=== PATIENT | female | born 1945 | race Caucasian/White ===

== ENCOUNTER 2021-06-09 11:13 | Day surgery (SDC) | payer MEDICARE, OTHER, SELFPAY ==
[2021-06-03 08:57] VITALS: BMI 24.4
--- NOTE | 2021-06-05 10:36 | P.CONAN_ITS ---
Documented by User: Maya Velez NP 06/05/21 10:37 HPI - Anesthesia Eval Consult details Narrative: 76yo F for Upper Endoscopy and Colonoscopy [facility] Past Medical History Medical History (Updated 06/03/21 @ 09:00 by Pratima Rolon RN) Barretts esophagus COVID-19 vaccine series completed GERD (gastroesophageal reflux disease) Hiatal hernia Hypothyroid Osteoarthritis Osteoporosis Raynauds disease Surgical History Surgical History (Updated 06/02/21 @ 15:07 by Pratima Rolon RN) H/O colonoscopy History of History of esophagogastroduodenoscopy (EGD) Hx of dilation and curettage Hx of hand surgery Hx of nasal septoplasty Social History Social History Are you a primary care support representative to a significant other at home: No Do you presently have visiting nurse or other home services: No Patient Tobacco Use Status: Never used Tobacco Use of substances other than those prescribed or required for medical reasons: No Have you been hit, kicked, punched, or otherwise hurt by someone within the past year? If so, by whom?: No Are you DNR?: No Advance Directives: No Advance Directives Information Provided: No Advance Directives on File: No Recently lost weight without trying: No Eating poorly because of decreased appetite: No Nutrition Risks: No Nutritional Risk Poor oral hygiene: No (dental implant X2-lower front and upper right back) Meds Allergies Allergy/AdvReac Type Severity Reaction Status Date / Time No Known Allergies Allergy Verified 06/02/21 15:07 Home Medications Medication Instructions Recorded Confirmed Last Taken Type cholecalciferol (vitamin D3) 25 25 mcg PO DAILY 06/02/21 06/02/21 Unknown History mcg (1,000 unit) capsule (Vitamin D3) esomeprazole magnesium 40 mg 40 mg PO DAILY 06/02/21 06/02/21 Unknown History capsule,delayed release levothyroxine 75 mcg tablet 75 mcg PO DAILY 06/02/21 06/02/21 06/09/21 History multivitamin 1 tab PO DAILY 06/02/21 06/02/21 Unknown History Exam Exam Date and Time: June 05, 2021 1036 Height,Weight and Vital Signs: Height 5 ft 5 in Weight 66.678 kg Assessment and Plan Assessment Anesthesia Assessment: Chart Reviewed Documented by User: Barbara Pozo MD 06/09/21 12:46 [facility] Past Medical History Medical History (Updated 06/03/21 @ 09:00 by Pratima Rolon, KENNA) Barretts esophagus COVID-19 vaccine series completed GERD (gastroesophageal reflux disease) Hiatal hernia Hypothyroid Osteoarthritis Osteoporosis Raynauds disease Family History Family history of problems with anesthesia: No Surgical History Surgical History (Updated 06/02/21 @ 15:07 by Pratima Rolon RN) H/O colonoscopy History of History of esophagogastroduodenoscopy (EGD) Hx of dilation and curettage Hx of hand surgery Hx of nasal septoplasty History of Problems with Anesthesia: No Social History Social History Are you a primary care support representative to a significant other at home: No Do you presently have visiting nurse or other home services: No Patient Tobacco Use Status: Never used Tobacco Use of substances other than those prescribed or required for medical reasons: No Have you been hit, kicked, punched, or otherwise hurt by someone within the past year? If so, by whom?: No Are you DNR?: No Advance Directives: No Advance Directives Information Provided: No Advance Directives on File: No Recently lost weight without trying: No Eating poorly because of decreased appetite: No Nutrition Risks: No Nutritional Risk Poor oral hygiene: No (dental implant X2-lower front and upper right back) Meds Allergies Allergy/AdvReac Type Severity Reaction Status Date / Time No Known Allergies Allergy Verified 06/02/21 15:07 Home Medications Medication Instructions Recorded Confirmed Last Taken Type cholecalciferol (vitamin D3) 25 25 mcg PO DAILY 06/02/21 06/02/21 Unknown History mcg (1,000 unit) capsule (Vitamin D3) esomeprazole magnesium 40 mg 40 mg PO DAILY 06/02/21 06/02/21 Unknown History capsule,delayed release levothyroxine 75 mcg tablet 75 mcg PO DAILY 06/02/21 06/02/21 06/09/21 History multivitamin 1 tab PO DAILY 06/02/21 06/02/21 Unknown History Exam Airway Mallampati Class: II (Implant) TM Dist: >3cm Neck ROM: Full Heart: rrr Lungs: cta Assessment and Plan Assessment Anesthesia Assessment: Anesthesia Plan Discussed and Chart Reviewed Final Anesthetic Review Family History of Problems with Anesthesia: No History of Problems with Anesthesia: No NPO: Yes ASA Class: II Final Preanesthetic Review: No Changes in Pt Med Stat, Meds/Allgs Chart Reviewed and Consent Obtained/Reviewed Patient Risk: Intermediate Procedure Risk: Intermediate Anesthetic Plan Anesthetic Plan: MAC: Disposition: Standard PACU
[2021-06-09 11:16] VITALS: BP 147/66; PULSE 78; RESP 18; TEMP 37.1; O2SAT 95
[2021-06-09] MEDS: Lactated Ringers 1,000 ML 100 ML IVCONT (11:47)
--- NOTE | 2021-06-09 12:35 | HO.ANESPROP2 ---
[facility] Past Medical History Medical History (Updated 06/03/21 @ 09:00 by Pratima Rolon RN) Barretts esophagus COVID-19 vaccine series completed GERD (gastroesophageal reflux disease) Hiatal hernia Hypothyroid Osteoarthritis Osteoporosis Raynauds disease Family History Family history of problems with anesthesia: No Surgical History Surgical History (Updated 06/02/21 @ 15:07 by Pratima Rolon RN) H/O colonoscopy History of History of esophagogastroduodenoscopy (EGD) Hx of dilation and curettage Hx of hand surgery Hx of nasal septoplasty History of Problems with Anesthesia: No Social History Social History Are you a primary palliative care specialist to a significant other at home: No Do you presently have visiting nurse or other home services: No Patient Tobacco Use Status: Never used Tobacco Use of substances other than those prescribed or required for medical reasons: No Have you been hit, kicked, punched, or otherwise hurt by someone within the past year? If so, by whom?: No Are you DNR?: No Advance Directives: No Advance Directives Information Provided: No Advance Directives on File: No Recently lost weight without trying: No Eating poorly because of decreased appetite: No Nutrition Risks: No Nutritional Risk Poor oral hygiene: No (dental implant X2-lower front and upper right back) Meds Allergies Allergy/AdvReac Type Severity Reaction Status Date / Time No Known Allergies Allergy Verified 06/02/21 15:07 Active Medications: Current Medications Lactated Ringer's (Lr) 1,000 mls @ 100 mls/hr IVCONT .Q10H DC Last Admin: 06/09/21 11:47 Dose: 100 mls/hr Documented by: Sodium Biphosphate/Sodium Phosphate (Sodium Phosphate,[place]-Dibasic 133 Ml Enema) 133 ml ID ONCE PRN PRN Reason: Poor Colonoscopy Prep Results Home Medications Medication Instructions Recorded Confirmed Last Taken Type cholecalciferol (vitamin D3) 25 25 mcg PO DAILY 06/02/21 06/02/21 Unknown History mcg (1,000 unit) capsule (Vitamin D3) esomeprazole magnesium 40 mg 40 mg PO DAILY 06/02/21 06/02/21 Unknown History capsule,delayed release levothyroxine 75 mcg tablet 75 mcg PO DAILY 06/02/21 06/02/21 06/09/21 History multivitamin 1 tab PO DAILY 06/02/21 06/02/21 Unknown History Exam Exam Date and Time: June 09, 2021 1235 Height,Weight and Vital Signs: Height 5 ft 5 in Weight 66.678 kg Last Vital Signs Temp 98.8 F 06/09/21 11:16 Pulse 78 06/09/21 11:16 Resp 18 06/09/21 11:16 BP 147/66 H 06/09/21 11:16 Pulse Ox 95 06/09/21 11:16 Airway Mallampati Class: II TM Dist: >3cm Neck ROM: Full Heart: rrr Lungs: cta Assessment and Plan Assessment Anesthesia Assessment: Anesthesia Plan Discussed and Chart Reviewed Final Anesthetic Review Family History of Problems with Anesthesia: No History of Problems with Anesthesia: No NPO: Yes ASA Class: II Final Preanesthetic Review: No Changes in Pt Med Stat, Meds/Allgs Chart Reviewed and Consent Obtained/Reviewed Patient Risk: Intermediate Procedure Risk: Intermediate Anesthetic Plan Anesthetic Plan: MAC: Disposition: Standard PACU
[2021-06-09 13:57] VITALS: BP 104/55; PULSE 69; RESP 16; TEMP 36.4; O2SAT 100
--- NOTE | 2021-06-09 14:01 | PM.OP ---
Brief Operative Note Date of Service: 06/09/21 Pre-op diagnosis: Hernandez's, Screening Post-op diagnosis: other (Same, Hiatal hernia, colon polyp, AVM of ascending colon) Procedure: EGD with biopsies, Colonoscopy to the cecum with bx/removal of polyp Surgeon: Gasper Rodríguez Anesthesia: MAC Was an Shoe Stitcher Odd used for this Procedure?: No Estimated blood loss (mL): 2.0 Pathology: other (A. EG Junction at 36cm B. Transverse colon polyp) Condition: stable Disposition: PACU
[2021-06-09 14:21] VITALS: BP 146/74; PULSE 74; RESP 16; TEMP 36.4; O2SAT 100
--- NOTE | 2021-06-09 16:06 | OP_ITS ---
SURGEON: Gasper Rodríguez MD INDICATIONS: The patient presents for evaluation of gastroesophageal reflux and Hernandez's esophagus, as well as personal history of tubular adenoma of the colon, and colorectal cancer screening. Full consent has been obtained from her for this, including risks of bleeding and perforation. PREOPERATIVE DIAGNOSIS: POSTOPERATIVE DIAGNOSIS: PROCEDURE PERFORMED: ESTIMATED BLOOD LOSS: COMPLICATIONS: ANESTHESIA: Monitored anesthesia care. ASSISTANTS: SPECIMENS: PROCEDURE: Esophagogastroduodenoscopy with biopsies, and colonoscopy to the cecum with biopsy and removal of polyp. PREOPERATIVE DIAGNOSES: Gastroesophageal reflux, Hernandez's esophagus, personal history of tubular adenoma of the colon, family history of colon cancer, colorectal cancer screening. POSTOPERATIVE DIAGNOSES: Gastroesophageal reflux, Hernandez's esophagus, personal history of tubular adenoma of the colon, family history of colon cancer, colorectal cancer screening, hiatal hernia, gastric polyps, colon polyp, angiodysplasia of the colon, diverticulosis, and internal hemorrhoids. DESCRIPTION OF PROCEDURE: The patient was placed in the left lateral decubitus position. The Olympus video gastroscope was passed in the posterior oropharynx and upper esophagus under direct vision. The scope was passed slowly into the distal esophagus. The gastroesophageal junction appeared at 36 cm. There was some slight irregularity at this level consistent with reflux and possibly small, less than 1 cm areas of Hernandez's mucosa. There was no esophagitis nor ulceration. The scope entered the stomach, there was a moderate-sized hiatal hernia. The scope was advanced to pylorus. The duodenum was cannulated to the descending portion. The duodenum including the bulb appeared normal without mass or ulceration. The scope was withdrawn back to the stomach. The gastric antrum and body appeared normal with good peristalsis. The scope was retroflexed visualizing the proximal stomach carefully, which appeared normal, without any sign of mass or ulceration. There were several hyperplastic appearing gastric polyps, which were not biopsied. The scope was straightened and withdrawn back in the esophagus. Biopsies were obtained at the EG junction at 36 cm. Proximal to that, the esophageal mucosa appeared normal. Scope was withdrawn from the patient. She was turned around for colonoscopy. The digital rectal exam revealed no abnormalities. The Olympus video pediatric colonoscope was entered into the rectum and advanced easily to the cecum. Once in the cecum, I did identify normal-appearing cecal pouch with appendiceal orifice and a normal-appearing ileocecal valve. There was transillumination of light deep in the right lower quadrant. The entire cecum and ileocecal valve appeared normal. Scope was slowly withdrawn assessing all mucosal surfaces carefully. Preparation was excellent. In the proximal ascending colon, there was a nonbleeding angiodysplasia. In the transverse colon, there was an approximately 4 mm polyp, which was biopsied and completely removed with cold biopsy forceps. I did not visualize any other polyps, colitis, nor any other angiodysplasia. There was a moderate amount of diverticulosis in the descending and sigmoid colon. In the rectum, scope was retroflexed visualizing internal hemorrhoids, but no other pathology. The rectal mucosa appeared normal. The scope was straightened and withdrawn from the patient. She tolerated both procedures well and was returned to the recovery area in stable condition. IMPRESSION: 1. Moderate-sized hiatal hernia, gastroesophageal reflux, history of Hernandez's esophagus. 2. Benign appearing gastric polyps. 3. Small colon polyp, status post biopsy removal. 4. Diverticulosis. 5. Nonbleeding angiodysplasia of ascending colon. 6. Internal hemorrhoids. PLAN: The results of the biopsies will be checked. Given these minimal findings on both procedures and her age of 76, I do not think she will need any further screening colonoscopies nor followup upper endoscopies at this time. She was advised not to use any aspirin and NSAIDs for 1 week. She will continue her esomeprazole for the reflux. She will otherwise see me on a p.r.n. basis. MD RAMON Kay/RUDOLPH / [id number] JONES
== END 2021-06-09 14:56 | disposition home or self-care (01) ==
PROVIDERS: PCP Internal Medicine; Visit Provider Internal Medicine
PROC: (CPT 45380; principal; 2021-06-09 12:30)
DX: Z12.11 Encounter for screening for malignant neoplasm of colon (principal); D12.3 Benign neoplasm of transverse colon; Z86.010 Personal history of colon polyps; Z80.0 Family history of malignant neoplasm of digestive organs; K57.30 Diverticulosis of large intestine without perforation or abscess without bleeding; K64.8 Other hemorrhoids; K55.20 Angiodysplasia of colon without hemorrhage; K22.70 Barrett's esophagus without dysplasia; K21.9 Gastro-esophageal reflux disease without esophagitis; K31.7 Polyp of stomach and duodenum; K44.9 Diaphragmatic hernia without obstruction or gangrene; E03.9 Hypothyroidism, unspecified; M81.0 Age-related osteoporosis without current pathological fracture; I73.00 Raynaud's syndrome without gangrene; Z79.899 Other long term (current) drug therapy
CPT/HCPCS: 45380; 43239; 88305

== ENCOUNTER 2023-10-29 15:52 | Outpatient (REF) | payer MEDICARE, OTHER, SELFPAY ==
[2023-10-29 16:10] LABS: MANUAL DIFF FLAG NO
[2023-10-29 17:37] LABS: Basophils Percent Auto 0.5 % (0-2); Eosinophils Percent Auto 0.8 % (0-4); Hematocrit 27.4 % (37.0-47.0); Hemoglobin 8.7 g/dl (12.0-16.0); Imm Gran Abs Auto 0.03 X10*3/uL (0.00-0.03); Imm Gran Pct Auto 0.8 % (0.0-0.4); Lymphocytes Absolute Auto 0.3 X10*3/uL (1.2-4.9); Lymphocytes Percent Auto 8.9 % (20-40); Mean Corpuscular HGB Conc 31.8 g/dl (31.0-35.0); Mean Corpuscular Hemoglobin 29.7 pg (27.0-33.0); Mean Corpuscular Volume 93.5 fL (80.0-98.0); Mean Platelet Volume 11.7 fL (9.4-12.3); Monocytes Absolute Auto 0.3 X10*3/uL (0.1-1.2); Monocytes Percent Auto 7.9 % (2-11); Neutrophils Absolute Auto 3.1 x10*3/uL (2.0-8.3); Neutrophils Percent Auto 81.1 % (45-73); Platelet Count 123 X10*3/uL (160-400); Red Blood Count 2.93 X10*6/uL (4.20-5.50); Red Cell Distribution Width 16.5 % (11.0-16.0); White Blood Count 3.8 X10*3/uL (4.8-10.8)
[2023-10-29 18:07] LABS: Alanine Aminotransferase 17 U/L (0-31); Albumin Level 4.3 g/dL (3.5-5.0); Alkaline Phosphatase 91 U/L (39-117); Aspartate Amino Transferase 20 U/L (5-31); Bilirubin Direct 0.3 mg/dL (0.0-0.5); Bilirubin Total 0.6 mg/dL (0.0-1.0); Iron 201 mcg/dL (30-160); Percent Iron Saturation 55 % (15-50); Total Iron Binding Capacity 364 mcg/dL (228-428); Total Protein 6.8 g/dL (6.5-8.0); Unsaturated Iron Binding 163 ug/dL
[2023-10-29 18:23] LABS: Ferritin 18 ng/mL (10-250)
[2023-10-29 18:39] LABS: Folate 11.8 ng/mL (> or = 4.0); Vitamin B12 526 pg/mL (200-900)
[2023-11-01 14:58] LABS: Endomysial IgA Antibody Negative (Negative)
[2023-11-02 17:39] LABS: Gliadin Deamidated IgA Ab <1.0 U/mL; Gliadin Deamidated IgG Ab <1.0 U/mL; Transglutaminase Ab IgG <1.0 U/mL; Transglutaminase IgA <1.0 U/mL
[2023-11-03 12:18] LABS: Immunoglobulin A 40 mg/dL (70-320)
== END 2023-10-29 15:53 | disposition home or self-care (01) ==
LOC: HO.LAB 15:52
PROVIDERS: PCP Internal Medicine; Visit Provider Internal Medicine
DX: D64.9 Anemia, unspecified (principal)
CPT/HCPCS: 36415; 80076; 82607; 82728; 82746; 82784; 83540; 85025; 86231; 86258; 86364

== ENCOUNTER 2023-11-04 16:12 | Outpatient (REF) | payer MEDICARE, OTHER, SELFPAY ==
[2023-11-06 07:17] LABS: OBS1 NEGATIVE (NEGATIVE); OBS2 POSITIVE (NEGATIVE)
[2023-11-06 07:18] LABS: OBS Int Ctl Valid YES; OBS Lot 50422; OBS3 POSITIVE (NEGATIVE)
== END 2023-11-04 16:13 | disposition home or self-care (01) ==
LOC: HO.LNP 16:12
PROVIDERS: Visit Provider Internal Medicine
DX: D64.9 Anemia, unspecified (principal)
CPT/HCPCS: 82270